=== PATIENT | male | born 1985 | race Caucasian/White ===

== ENCOUNTER 2025-02-02 03:40 | Emergency (ER) | payer SELFPAY ==
[~2025-02-02] VITALS: Ht 167.6 cm; Wt 70.1 kg
[2025-02-02 03:44] VITALS: O2SAT 98
[2025-02-02 03:53] VITALS: BP 122/78; PULSE 90; RESP 18; TEMP 36.8; O2SAT 90
== END 2025-02-02 06:52 | disposition left against medical advice (07) ==
LOC: ER 03:40
DX: M79.602 Pain in left arm (principal); Z53.21 Procedure and treatment not carried out due to patient leaving prior to being seen by health care provider